=== PATIENT | male | born 1930 | race Caucasian/White ===

== ENCOUNTER → 2021-02-27 | Outpatient (CLI) | payer OTHER, BC ==
[~2021-02-27] MED LIST: ADULT LOW DOSE81 MG PO; CALCIUM; CARDIZEM CD180 MG PO; LORTAB 5 MG/5001 TA1 PO; MULTIVITAMIN W1 EAC5 PO; ZOCOR 20 MG TAB20 MG PO
== END ==
LOC: SJCVCIMAG 07:43
PROVIDERS: ATTEND Internal Medicine Cardiovascular Disease
DX: R94.31 Abnormal electrocardiogram [ECG] [EKG] (principal); I45.10 Unspecified right bundle-branch block; I48.21 Permanent atrial fibrillation; I25.10 Atherosclerotic heart disease of native coronary artery without angina pectoris; I10 Essential (primary) hypertension; E78.00 Pure hypercholesterolemia, unspecified; I71.4 Abdominal aortic aneurysm, without rupture; I65.23 Occlusion and stenosis of bilateral carotid arteries; D68.59 Other primary thrombophilia; Z87.891 Personal history of nicotine dependence; Z79.899 Other long term (current) drug therapy; Z91.013 Allergy to seafood; Z95.828 Presence of other vascular implants and grafts